=== PATIENT | male | born 1950 | race African-American/Black ===

== ENCOUNTER 2019-02-26 07:00 | Emergency (ER) | payer MEDICARE ==
[2019-02-26 09:11] LABS: APPEARANCE,URINE CLEAR; BILIRUBIN,URINE NEGATIVE (NEGATIVE); COLOR,URINE YELLOW; GLUCOSE, URINE NEGATIVE (NEGATIVE); KETONES,URINE NEGATIVE (NEGATIVE); LEUKOCYTE ESTERASE,URINE NEGATIVE (NEGATIVE); NITRITE,URINE NEGATIVE (NEGATIVE); PROTEIN,URINE NEGATIVE (NEGATIVE); URINE SPECIFIC GRAVITY 1.014; UROBILINOGEN,URINE NEGATIVE mg/dL (<2.0)
--- NOTE | 2019-02-26 09:24 | ER Document Report ---
Entered by LUH IVAN SCRIBE 02/26/19 0848 Acting as scribe for:CARROLL NICHOLS MD ED General - General Chief Complaint: Trouble Walking Stated Complaint: UNABLE TO WALK/STAND Time Seen by Provider: 02/26/19 08:14 Mode of Arrival: Ambulatory Information source: Patient Notes: Patient is a 68 year old male with Parkinson's disease that presents to the emergency department today with complaints of being unable to sleep with increasing weakness for the last few days. Patient states that his tremors have became more severe as well over these last few days, stating that the tremor is keeping him from sleeping and makes it difficult to ambulate. Patient states prior to arrival he was unable to ambulate altogether because of said tremor. Patient reports not having his neupro patch on for these last few days stating he ran out of them. Patient reports this patch usually helps him sleep. Patient is new to the area, moving her from [place] recently. Patient states he has seen Doctor Tamiko one time. TRAVEL OUTSIDE OF THE [place] IN LAST 30 DAYS: No - Related Data Allergies/Adverse Reactions: No Known Allergies Allergy (Unverified 02/26/19 08:24) Home Medications: lisinpril, carvedopa, azilct, nuupro, xarelto, amlodipine, hydrochlorothiazide, rosuvastin Past Medical History - General Information source: Patient - Social History Smoking Status: Former Smoker - quit 35 years ago Cigarette use (# per day): No Chew tobacco use (# tins/day): No Smoking Education Provided: No Frequency of alcohol use: None Drug Abuse: None Lives with: Family Family History: Reviewed & Not Pertinent Patient has suicidal ideation: No Patient has homicidal ideation: No - Past Medical History Cardiac Medical History: Reports: Hx Atrial Fibrillation, Hx Hypertension Neurological Medical History: Reports: Other - Hx Parkinsons Past Surgical History: Reports: Hx Herniorrhaphy Review of Systems - Review of Systems Constitutional: See HPI, Weakness, Other - unable to sleep, out of meds EENT: No symptoms reported Cardiovascular: No symptoms reported Respiratory: No symptoms reported Gastrointestinal: No symptoms reported Genitourinary: No symptoms reported Male Genitourinary: No symptoms reported Musculoskeletal: No symptoms reported Skin: No symptoms reported Hematologic/Lymphatic: No symptoms reported Neurological/Psychological: See HPI, Tremor -: Yes All other systems reviewed and negative Physical Exam - Vital signs Vitals: Temp Pulse Resp BP Pulse Ox 97.5 F 75 16 141/91 H 100 02/26/19 07:02 02/26/19 07:02 02/26/19 07:02 02/26/19 07:02 02/26/19 07:02 - Notes Notes: Physical Exam: General: Alert, appears well, right upper extremity tremor when collecting hist ory which increases when talking about the tremor. When distracted the tremor stops. No tremor while physical exam is being performed. HEENT: Normocephalic. Atraumatic. PERRL. Extraocular movements intact. Oropharynx clear. Neck: Supple. Non-tender. Respiratory: No respiratory distress. Clear and equal breath sounds bilaterally. Cardiovascular: Regular rate and rhythm. Abdominal: Normal Inspection. Non-tender. No distension. Normal Bowel Sounds. Back: No gross abnormalities. Extremities: Moves all four extremities. Upper extremities: Normal inspection. Normal ROM. Normal range rider strength bilaterally. Lower extremities: Normal inspection. No edema. Normal ROM. Good strength with dorsi and plantar flexion bilaterally. Neurological: Normal cognition. AAOx4. Normal speech. No hyperreflexia. Psychological: Normal affect. Normal Mood. Skin: Warm. Dry. Normal color. Course - Vital Signs Vital signs: Temp Pulse Resp BP Pulse Ox 97.5 F 75 16 141/91 H 100 02/26/19 07:02 02/26/19 07:02 02/26/19 07:02 02/26/19 07:02 02/26/19 07:02 - Laboratory Result Diagrams: 02/26/19 09:13 02/26/19 11:00 Laboratory results interpreted by me: 02/26/19 02/26/19 09:13 11:00 RDW 14.6 H [place] % (Auto) 14.3 H Potassium 3.3 L Creatine Kinase 403 H - EKG Interpretation by Mt EKG shows normal: Sinus rhythm, [place], Intervals, QRS Complexes. abnormal: ST-T Waves - Borderline inferior T abnormalities Rate: Normal - 72 Rhythm: NSR Voltage: Consistant with LVH P Waves: DELORIS When compared to previous EKG there are: Previous EKG unavailable Discharge - Discharge Clinical Impression: Parkinson's disease (tremor, stiffness, slow motion, unstable posture), Hypokalemia, Has run out of medications Condition: Stable Disposition: HOME, SELF-CARE Additional Instructions: Increase potassium in your diet for the next few days. Bananas are a good source of potassium. Go to the drugstore and get your Parkinson's medications refilled and start taking them. Follow-up with Dr. Morrison this week for recheck if not improving after you restart your medications. RETURN TO THE EMERGENCY ROOM IF ANY NEW OR WORSENING SYMPTOMS. Scribe Attestation: 02/26/19 09:48 I personally performed the services described in the documentation, reviewed and edited the documentation which was dictated to the scribe in my presence, and it accurately records my words and actions. I personally performed the services described in the documentation, reviewed and edited the documentation which was dictated to the scribe in my presence, and it accurately records my words and actions.
[2019-02-26 09:38] LABS: ABSOLUTE EOSINOPHILS # (AUTO) 0.2 10^3/uL (0.0-0.6); ABSOLUTE LYMPHOCYTES (AUTO) 1.2 10^3/uL (0.5-4.7); ABSOLUTE MONOCYTES (AUTO) 0.7 10^3/uL (0.1-1.4); ABSOLUTE NEUT (AUTO) 2.6 10^3/uL (1.7-8.2); BASOPHILS % (AUTO) 0.9 % (0-2); EOSINOPHILS % (AUTO) 4.8 % (0-6); HEMATOCRIT 41.4 % (37.9-51.0); HEMOGLOBIN 13.7 g/dL (13.5-17.0); LYMPHOCYTES % (AUTO) 25.8 % (13-45); MEAN CORPUSCULAR HGB CONC 33.1 g/dL (32.0-36.0); MEAN CORPUSCULAR VOLUME 82 fl (80-97); MONOCYTES % (AUTO) 14.3 % (3-13); PLATELET COUNT 191 10^3/uL (150-450); RED BLOOD COUNT 5.08 10^6/uL (4.35-5.55); RED CELL DISTRIBUTION WIDTH 14.6 % (11.5-14.0); SEGMENTED NEUTROPHILS % (AUTO) 54.2 % (42-78); TOTAL CELLS COUNTED % (AUTO) 100 %; WHITE BLOOD COUNT 4.8 10^3/uL (4.0-10.5)
[2019-02-26 11:30] LABS: ALBUMIN 4.3 g/dL (3.5-5.0); ALKALINE PHOSPHATASE 81 U/L (38-126); ANION GAP 10 (5-19); ASPARTATE AMINO TRANSFERASE 28 U/L (17-59); BILIRUBIN,DIRECT 0.1 mg/dL (0.0-0.4); BILIRUBIN,TOTAL 0.7 mg/dL (0.2-1.3); BLOOD UREA NITROGEN 17 mg/dL (7-20); CALCIUM 9.3 mg/dL (8.4-10.2); CARBON DIOXIDE 28 mmol/L (22-30); CHLORIDE 104 mmol/L (98-107); CREATINE KINASE 403 U/L (55-170); GLUCOSE 94 mg/dL (75-110); POTASSIUM 3.3 mmol/L (3.6-5.0); TOTAL PROTEIN 7.4 g/dL (6.3-8.2)
[2019-02-26] MEDS ORDERED: POTASSIUM CHLORIDE 20 MEQ PACKET PO ONE (13:03)
[2019-02-26 13:26] VITALS: BP 144/83
--- NOTE | 2019-02-26 17:38 | EKG REPORT ---
SEVERITY:- ABNORMAL ECG - SINUS RHYTHM RAA, CONSIDER BIATRIAL ABNORMALITIES LEFT VENTRICULAR HYPERTROPHY BORDERLINE T ABNORMALITIES, INFERIOR LEADS : Confirmed by: Gordon Crooks MD 26-Feb-2019 17:37:33
== END 2019-02-26 13:24 | disposition home or self-care (01) ==
LOC: ER 07:00
DX: G20 Parkinson's disease (principal); E87.6 Hypokalemia; R53.1 Weakness; I48.91 Unspecified atrial fibrillation; I10 Essential (primary) hypertension; Z79.899 Other long term (current) drug therapy; Z79.02 Long term (current) use of antithrombotics/antiplatelets; Z87.891 Personal history of nicotine dependence
CPT/HCPCS: 93005; 99284; 36415; 82550; 83735; 85025; 80053; 81001; 84484; 93010; J3490

== ENCOUNTER 2020-04-21 09:40 | Emergency (ER) | payer MEDICARE ==
--- NOTE | 2020-04-21 10:23 | ER Document Report ---
ED Medical Screen (RME) - General Chief Complaint: Rectal Bleeding Stated Complaint: RECTAL BLEEDING 2 DAYS Time Seen by Provider: 04/21/20 10:17 Primary Care Provider: LOULOU WEBBER MD [Primary Care Provider] - Follow up as needed Mode of Arrival: Ambulatory Information source: Patient Notes: 69-year-old male presented to ED for rectal bleeding. He states he has a hemorrhoid and had a very forceful BM last night. He is on Xarelto for his A. fib. He states it bled a lot in the toilet at the time of the bowel movement and now is continuing to drip. He states he does have depends on but it is continuing to drip blood. He does have a history of A. fib high blood pressure and Parkinson's. He does not smoke drink or use any drugs. He is very hard of hearing. Patient is alert oriented respirations regular nonlabored speaking in full sentences. I have greeted and performed a rapid initial assessment of this patient. A comprehensive ED assessment and evaluation of the patient, analysis of test results and completion of medical decision making process will be conducted by an additional ED providers. TRAVEL OUTSIDE OF THE [place] IN LAST 30 DAYS: No - Related Data Allergies/Adverse Reactions: No Known Allergies Allergy (Unverified 02/26/19 08:24) Past Medical History - Past Medical History Cardiac Medical History: Reports: Hx Atrial Fibrillation, Hx Hypertension Past Surgical History: Reports: Hx Abdominal Surgery - hernia repair, Hx Herniorrhaphy Physical Exam - Vital signs Vitals: Temp Pulse Resp BP Pulse Ox 98.5 F 67 16 113/97 H 94 04/21/20 10:17 04/21/20 10:17 04/21/20 10:17 04/21/20 10:17 04/21/20 10:17 Course - Vital Signs Vital signs: Temp Pulse Resp BP Pulse Ox 97.5 F 70 16 151/94 H 98 04/21/20 11:52 04/21/20 11:52 04/21/20 11:52 04/21/20 11:52 04/21/20 11:52 - Laboratory Result Diagrams: 04/21/20 10:46 04/21/20 10:46 Laboratory results interpreted by me: 04/21/20 04/21/20 04/21/20 10:46 10:46 10:46 Hgb 12.8 L RDW 15.2 H [place] % (Auto) 14.5 H PT 15.9 H Potassium 3.5 L Est GFR (MDRD) Non-Af 57 L Glucose 111 H Doctor's Discharge - Discharge Clinical Impression: Hemorrhoids, internal, with bleeding Condition: Stable Disposition: HOME, SELF-CARE Additional Instructions: Hemorrhoids You have hemorrhoids. These are formed by enlargement of veins around the anus. The cause is increased pressure in the veins, from or straining at bowel movements. Hemorrhoids often cause itching and bleeding with bowel movements. When a hemorrhoid becomes clotted, severe pain and swelling result. Soothing creams and suppositories are often prescribed. Warm sitz-baths may also decrease pain, swelling, and itching. Eat a high-fiber diet. Stool softeners such as Metamucil will help. Keep the area very clean. Medicated cleansing pads (such as Tucks) are useful after bowel movements. A hose-mounted shower unit (like a shower massager at low water pressure) can be used to clean around tender hemorrhoid tags. You should call the doctor or return if you develop fever, increasing pain, or an enlarging mass around the anus, or if you simply fail to improve with treatment. [id number] Metamucil as directed. Prescriptions: Hydrocortisone Acetate [Anusol Hc 25 mg Supp.rect] 1 supp.rect [place] BID #14 supp.rect Docusate Sodium [Colace 100 mg Capsule] 100 mg PO BID #60 capsule Referrals: LOULOU WEBBER MD [Primary Care Provider] - Follow up as needed
[2020-04-21 11:06] LABS: ABSOLUTE EOSINOPHILS # (AUTO) 0.2 10^3/uL (0.0-0.6); ABSOLUTE LYMPHOCYTES (AUTO) 1.1 10^3/uL (0.5-4.7); ABSOLUTE MONOCYTES (AUTO) 0.7 10^3/uL (0.1-1.4); ABSOLUTE NEUT (AUTO) 2.9 10^3/uL (1.7-8.2); BASOPHILS % (AUTO) 0.7 % (0-2); EOSINOPHILS % (AUTO) 3.8 % (0-6); HEMATOCRIT 37.9 % (37.9-51.0); HEMOGLOBIN 12.8 g/dL (13.5-17.0); LYMPHOCYTES % (AUTO) 22.6 % (13-45); MEAN CORPUSCULAR HEMOGLOBIN 27.8 pg (27.0-33.4); MEAN CORPUSCULAR HGB CONC 33.7 g/dL (32.0-36.0); MEAN CORPUSCULAR VOLUME 83 fl (80-97); MONOCYTES % (AUTO) 14.5 % (3-13); PLATELET COUNT 192 10^3/uL (150-450); RED BLOOD COUNT 4.59 10^6/uL (4.35-5.55); RED CELL DISTRIBUTION WIDTH 15.2 % (11.5-14.0); SEGMENTED NEUTROPHILS % (AUTO) 58.4 % (42-78); TOTAL CELLS COUNTED % (AUTO) 100 %; WHITE BLOOD COUNT 4.9 10^3/uL (4.0-10.5)
[2020-04-21 11:12] LABS: INTERNATIONAL RATION (INR) 1.25; PROTHROMBIN TIME 15.9 SEC (11.4-15.4)
[2020-04-21 11:13] LABS: PARTIAL THROMBOPLASTIN TIME 33.1 SEC (23.5-35.8)
[2020-04-21 11:22] LABS: ALBUMIN 3.9 g/dL (3.5-5.0); ALKALINE PHOSPHATASE 77 U/L (38-126); ANION GAP 8 (5-19); ASPARTATE AMINO TRANSFERASE 21 U/L (17-59); BILIRUBIN,DIRECT 0.1 mg/dL (0.0-0.4); BILIRUBIN,TOTAL 0.6 mg/dL (0.2-1.3); BLOOD UREA NITROGEN 18 mg/dL (7-20); CALCIUM 9.2 mg/dL (8.4-10.2); CARBON DIOXIDE 29 mmol/L (22-30); CHLORIDE 104 mmol/L (98-107); GLUCOSE 111 mg/dL (75-110); POTASSIUM 3.5 mmol/L (3.6-5.0); TOTAL PROTEIN 6.9 g/dL (6.3-8.2)
[2020-04-21] MEDS ORDERED: HYDROCORTISONE ACETATE 25 MG SUPP.RECT PR ONE (11:39)
--- NOTE | 2020-04-21 11:49 | ER Document Report ---
Entered by MINI LEWIS SCRIBE 04/21/20 1107 Acting as scribe for:GLORIA VELASQUEZ MD ED General - General Chief Complaint: Rectal Bleeding Stated Complaint: RECTAL BLEEDING 2 DAYS Time Seen by Provider: 04/21/20 10:17 Mode of Arrival: Ambulatory Information source: Patient Notes: This 69 year old male patient with a history of hemorrhoids and A fib on Xarelto presents to the ED today with complaints of rectal bleeding that started last night after straining to have a bowel movement. Patient states that he did not try to have a bowel movement this morning, but while sitting on the toilet, he felt the blood dripping from his rectum. He report a history of hemorrhoid surgery x2-3 years in [place] and states that he hasn't had any problems with hemorrhoids until last night. He also mentions that he is supposed to be taking MiraLax every day, but he has not been for some time. Patient notes that he has been bruising easily since he's been taking Xarelto, but states that he did not take it this morning. Denies weakness, abdominal pain, chest pain, shortness of breath, or hematemesis. TRAVEL OUTSIDE OF THE [place] IN LAST 30 DAYS: No - Related Data Allergies/Adverse Reactions: No Known Allergies Allergy (Unverified 02/26/19 08:24) Home Medications: xarelto, inbrija, lisinopril, amlodipine, hctz, carbidopa- levodopa, rasagiline Past Medical History - General Information source: Patient - Social History Smoking Status: Never Smoker Cigarette use (# per day): No Chew tobacco use (# tins/day): No Smoking Education Provided: No Frequency of alcohol use: None Drug Abuse: None Lives with: Spouse/Significant other Family History: Reviewed & Not Pertinent Patient has suicidal ideation: No Patient has homicidal ideation: No - Past Medical History Cardiac Medical History: Reports: Hx Atrial Fibrillation, Hx Hypertension Neurological Medical History: Reports: Hx Cerebrovascular Accident, Hx Parkinson's Disease Past Surgical History: Reports: Hx Inguinal Hernia - Bilateral, Other - Hemorrhoid surgery x2-3 years ago in [place], [place] Review of Systems - Review of Systems Constitutional: See HPI. denies: Weakness EENT: No symptoms reported Cardiovascular: See HPI. denies: Chest pain Respiratory: See HPI. denies: Short of breath Gastrointestinal: See HPI, Rectal bleeding. denies: Abdominal pain, Blood in vomit Genitourinary: No symptoms reported Male Genitourinary: No symptoms reported Musculoskeletal: No symptoms reported Skin: No symptoms reported Hematologic/Lymphatic: See HPI, Easy bruising Neurological/Psychological: No symptoms reported -: Yes All other systems reviewed and negative Physical Exam - Vital signs Vitals: Temp Pulse Resp BP Pulse Ox 98.5 F 67 16 113/97 H 94 04/21/20 10:17 04/21/20 10:17 04/21/20 10:17 04/21/20 10:17 04/21/20 10:17 - HEENT Head: Normocephalic, Atraumatic Eyes: Normal. No: Pale conjunctiva Pupils: PERRL - Respiratory Respiratory status: No respiratory distress Chest status: Nontender Breath sounds: Normal Chest palpation: Normal - Cardiovascular Rhythm: Regular Heart sounds: Normal auscultation Murmur: No Friction rub: No Gallop: None auscultated Normal capillary refill: Yes - < 2 seconds all digits - Abdominal Inspection: Normal Distension: No distension Bowel sounds: Normal Tenderness: Nontender - Abdomen soft Organomegaly: No organomegaly - Rectal Stool: Heme positive - Brown stool with tinge of pink, See lab result Hemorrhoids: No: External Notes: Minimal discomfort with digital exam. Sewer Pipe Layer present. - Back Back: Normal, Nontender - Extremities General upper extremity: Normal inspection General lower extremity: Normal inspection. No: Edema - Neurological Neuro grossly intact: Yes Orientation: AAOx4 [place] Coma Scale Eye Opening: Spontaneous [place] Coma Scale Verbal: Oriented [place] Coma Scale Motor: Obeys Commands [place] Coma Scale Total: 15 - Psychological Associated symptoms: Normal affect, Normal mood - Skin Skin Temperature: Warm Skin Moisture: Dry Skin Color: Normal Course - Re-evaluation Re-evalutation: 04/21/20 11:40 Patient resting comfortably at this time. no acute process at this time. Rectal exam shows internal hemorrhoids no active hemorrhaging noted there was a pink-tinged to the mucus that was tested positive for guaiac fecal occult on exam. Patient reports minimal tenderness on exam. Patient reports that he has had a most recent colonoscopy about 3 years ago and there were no issues or concerns for any neoplastic disease or polyps. - Vital Signs Vital signs: Temp Pulse Resp BP Pulse Ox 98.5 F 67 16 113/97 H 94 04/21/20 10:17 04/21/20 10:17 04/21/20 10:17 04/21/20 10:17 04/21/20 10:17 04/21/20 11:41 Vital signs stable - Laboratory Result Diagrams: 04/21/20 10:46 04/21/20 10:46 Laboratory results interpreted by me: 04/21/20 04/21/20 04/21/20 10:46 10:46 10:46 Hgb 12.8 L RDW 15.2 H [place] % (Auto) 14.5 H PT 15.9 H Potassium 3.5 L Est GFR (MDRD) Non-Af 57 L Glucose 111 H Laboratories show a hemoglobin of 12.8 PT of 15.9 glucose 111. Potassium 3.5. - Diagnostic Test Radiology reviewed: Image reviewed, Reports reviewed Discharge - Discharge Clinical Impression: Hemorrhoids, internal, with bleeding Condition: Stable Disposition: HOME, SELF-CARE Additional Instructions: Hemorrhoids You have hemorrhoids. These are formed by enlargement of veins around the anus. The cause is increased pressure in the veins, from or straining at bowel movements. Hemorrhoids often cause itching and bleeding with bowel movements. When a hemorrhoid becomes clotted, severe pain and swelling result. Soothing creams and suppositories are often prescribed. Warm sitz-baths may also decrease pain, swelling, and itching. Eat a high-fiber diet. Stool softeners such as Metamucil will help. Keep the area very clean. Medicated cleansing pads (such as Tucks) are useful after bowel movements. A hose-mounted shower unit (like a shower massager at low water pressure) can be used to clean around tender hemorrhoid tags. You should call the doctor or return if you develop fever, increasing pain, or an enlarging mass around the anus, or if you simply fail to improve with treatment. [id number] Metamucil as directed. Prescriptions: Hydrocortisone Acetate [Anusol Hc 25 mg Supp.rect] 1 supp.rect [place] BID #14 bloom pp.rect Docusate Sodium [Colace 100 mg Capsule] 100 mg PO BID #60 capsule I personally performed the services described in the documentation, reviewed and edited the documentation which was dictated to the scribe in my presence, and it accurately records my words and actions.
[2020-04-21 11:59] VITALS: BP 151/94
== END 2020-04-21 12:03 | disposition home or self-care (01) ==
LOC: ER 09:40
DX: K64.8 Other hemorrhoids (principal); K62.5 Hemorrhage of anus and rectum; I48.91 Unspecified atrial fibrillation; I10 Essential (primary) hypertension; Z79.01 Long term (current) use of anticoagulants
CPT/HCPCS: 99284; 86900; 86901; 36415; 86850; 85025; 85610; 85730; 82270; 80053; A9270; J3490